=== PATIENT | male | born 1960 | race Caucasian/White ===

== ENCOUNTER 2021-01-28 08:52 | Outpatient (CLI) | payer OTHER | END 2021-01-28 08:53 | disposition home or self-care (01) | LOC: TBSIIMAG 08:52 | PROVIDERS: ATTEND Nurse Practitioner Acute Care | DX: G40.409 Other generalized epilepsy and epileptic syndromes, not intractable, without status epilepticus (principal); R41.3 Other amnesia; I67.82 Cerebral ischemia | CPT/HCPCS: 70553 ==

== ENCOUNTER 2024-11-03 09:06 | Outpatient (CLI) | payer OTHER | END 2024-11-03 09:07 | disposition home or self-care (01) | LOC: ULT 09:06 | PROVIDERS: ATTEND Family Medicine | DX: R10.84 Generalized abdominal pain (principal); K76.0 Fatty (change of) liver, not elsewhere classified; R16.0 Hepatomegaly, not elsewhere classified | CPT/HCPCS: 76700 ==